=== PATIENT | male | born 1995 | race Caucasian/White ===

== ENCOUNTER 2022-05-18 09:36 | Emergency (ER) | payer BC ==
[2022-05-18 09:55] VITALS: O2SAT 97
[2022-05-18] MEDS ORDERED: Pepcid 20 MG VIAL IV ONE ×2 (10:10→10:15)
[2022-05-18] MEDS ORDERED: solu-MEDROL 125 MG, Sterile H2O 10 ml 2 ML IV ONE ×2 (10:10)
[2022-05-18] MEDS ORDERED: Sterile H2O 10 ml IJ ONE (10:15)
[2022-05-18] MEDS ORDERED: solu-MEDROL ONE (10:15)
[2022-05-18 10:24] LABS: Absolute Neutrophil Ct (ANC) 12.17 x10^3/uL (1.4-6.9); Basophil (Absolute #) 0.02 x10^3/uL (0-0.4); Eosinophil % 0.3 % (0.00-5.0); Eosinophil (Absolute #) 0.05 x10^3/uL (0-0.5); Hematocrit 47.8 % (42-50); Hemoglobin 16.2 g/dL (12.5-18.0); Lymphocyte (Absolute #) 1.59 x10^3/uL (1.0-4.6); Lymphocytes % 11.1 % (24.0-44.0); Mean Cell Volume 85.7 fL (78-100); Mean Corpuscular Hgb Concent. 33.9 g/dL (32-36); Mean Platelet Volume 9.7 fL (7.5-11.0); Monocyte (Absolute #) 0.51 x10^3/uL (0.0-1.3); Monocytes % 3.5 % (0.0-12.0); Neutrophil % 84.7 % (36.0-66.0); Platelet Count 293 x10^3/uL (150-450); Red Blood Count 5.58 x10^6/uL (4.1-5.6); Red Cell Distribution Width 11.7 % (11.5-14.0); White Blood Count 14.4 x10^3/uL (4.0-10.5)
--- NOTE | 2022-05-18 10:39 | ERPHSYRPT ---
- History of Present Illness Source: patient, other () Patient Subjective Stated Complaint: Pt c/o of bites/rash scattered over his body with swelling to hands, feet, neck Triage Nursing Assessment: Pt brought to the ER by his , hypertensive, denies pain except for occasional chest pain, back has multiple red lumps that look like chigger bites and a large swollen area the size of a hand on the bottom part of his neck, pt has bites and rash (not raised) on legs and arms and feet with swelling, itches, pt had been laying in the grass on a blanket on working on his car and he thought that is where he may have gotten into something, no difficulty breathing or seeing Physician History: 27 yo wm w diffuse, pruritic blanching rash x 1 day. Pt denies new or any meds, along with new exposures. He was lying in the grass on a blanket in the last couple of days. Pt denies fever/cough/dyspnea/angioedema/ST/cough/coryza. He has been having some intermittent chest pain which is sharp. Pt took 50mg po Benadryl at 1:00AM wo help. Timing/Duration: yesterday Quality: itchy Severity: moderate Location: generalized Possible Causes: no cause identified Allergies/Adverse Reactions: No Known Drug Allergies Allergy (Verified 05/18/22 09:55) Hx Influenza Vaccination/Date Given: Yes Hx Pneumococcal Vaccination/Date Given: No Immunizations Up to Date: Yes Travel Risk - International Travel Have you traveled outside of the country in past 3 weeks: No - Coronavirus Screening Are you exhibiting any of the following symptoms?: No Close contact with a COVID-19 positive Pt in past 14-21 Days: No - Vaccine Status Have you recieved a Covid-19 vaccination: No - Review of Systems Constitutional: No Symptoms Eyes: No Symptoms Ears, Nose, & Throat: No Symptoms Respiratory: No Symptoms Cardiac: No Symptoms Abdominal/Gastrointestinal: No Symptoms Genitourinary Symptoms: No Symptoms Musculoskeletal: No Symptoms Skin: No Symptoms, Rash Neurological: No Symptoms Psychological: No Symptoms Endocrine: No Symptoms Hematologic/Lymphatic: No Symptoms Immunological/Allergic: No Symptoms - Past Medical History Pertinent Past Medical History: No - Past Surgical History Past Surgical History: No - Social History Smoking Status: Never smoker Exposure to second hand smoke: No Drug Use: none Patient Lives Alone: No Significant Family History: no pertinent family hx - Nursing Vital Signs Nursing Vital Signs: Initial Vital Signs Temperature 96.6 F 05/18/22 09:42 Pulse Rate 70 05/18/22 09:42 Blood Pressure 147/88 05/18/22 09:42 O2 Sat by Pulse Oximetry 97 05/18/22 09:42 Pain Scale Pain Intensity 0 Hypertensive - Physical Exam General Appearance: no apparent distress Eye Exam: PERRL/EOMI, eyes nml inspection Ears, Nose, Throat Exam: normal ENT inspection, TMs normal, pharynx normal, moist mucous membranes Neck Exam: normal inspection, non-tender, supple, full range of motion, No meningismus, No mass, No Brudzinski, No Kernig's Respiratory Exam: normal breath sounds, lungs clear, No respiratory distress, No airway intact Cardiovascular Exam: regular rate/rhythm, normal heart sounds, normal peripheral pulses, capillary refill <2 sec, No murmur Gastrointestinal/Abdomen Exam: soft, normal bowel sounds, No tenderness Back Exam: normal range of motion, rash, No CVA tenderness, No vertebral tenderness Extremity Exam: normal range of motion, pelvis stable Neurologic Exam: alert, oriented x 3, cooperative, 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, normal mood/affect, nml cerebellar function, nml station & gait, sensation nml, No motor deficits, No sensory deficit Skin Exam: other (Generalized urticaria) Lymphatic Exam: No adenopathy SpO2 Interpretation: normal SpO2: 97 O2 Delivery: Room Air - Course Nursing assessment & vital signs reviewed: Yes EKG Interpreted by Me: RATE (NSR/Rate 65/Normal QT-QTc/No acute ST segment changes) Ordered Tests: Active Orders 24 hr Category Date Time Status CBC W DIFF Stat Lab 05/18/22 10:10 Completed CMP Stat Lab 05/18/22 10:10 Completed TROPONIN Q4H Lab 05/18/22 10:10 Completed Medication Summary Discontinued Medications Generic Name Dose Route Start Last Admin Trade Name Freq PRN Reason Stop Dose Admin Methylprednisolone Sodium 0 mg 05/18/22 10:10 05/18/22 10:10 Succinate 125 mg/ Sterile IV 05/18/22 10:11 125 mg Water 2 ml STAT ONE Administration Famotidine 40 mg 05/18/22 10:10 05/18/22 10:10 Famotidine 20 Mg/1 Vial IV 05/18/22 10:11 40 mg STAT ONE Administration Famotidine Confirm 05/18/22 10:15 Famotidine 20 Mg/1 Vial Administered 05/18/22 10:16 Dose 40 mg IV .STK-MED ONE Methylprednisolone Sodium Succinate Confirm 05/18/22 10:15 Methylprednis Sod Succ 125 Mg/2 Ml Vial Administered 05/18/22 10:16 Dose 125 mg .ROUTE .STK-MED ONE Sterile Water Confirm 05/18/22 10:15 Water For Injection,Sterile 10 Ml Vial Administered 05/18/22 10:16 Dose 10 ml IJ .STK-MED ONE Lab/Rad Data: Laboratory Result Diagrams 05/18/22 10:10 05/18/22 10:10 Laboratory Results 05/18/22 05/18/22 05/18/22 Range/Units 10:30 10:30 10:10 WBC (4.0-10.5) x10^3/uL RBC (4.1-5.6) x10^6/uL Hgb (12.5-18.0) g/dL Hct (42-50) % MCV (78-100) fL MCH (26-32) pg MCHC (32-36) g/dL RDW (11.5-14.0) % Plt Count (150-450) x10^3/uL MPV (7.5-11.0) fL Gran % (36.0-66.0) % Immature Gran % (Auto) (0.00-0.4) % Nucleat RBC Rel Count (0.00-0.1) % Eos # (Auto) (0-0.5) x10^3/uL Immature Gran # (Auto) (0.00-0.03) x10^3u/L Absolute Lymphs (auto) (1.0-4.6) x10^3/uL Absolute Monos (auto) (0.0-1.3) x10^3/uL Absolute Nucleated RBC (0.00-0.01) x10^3u/L Lymphocytes % (24.0-44.0) % Monocytes % (0.0-12.0) % Eosinophils % (0.00-5.0) % Basophils % (0.0-0.4) % Absolute Granulocytes (1.4-6.9) x10^3/uL Basophils # (0-0.4) x10^3/uL Sodium (137-145) mmol/L Potassium (3.5-5.1) mmol/L Chloride (98-107) mmol/L Carbon Dioxide (22-30) mmol/L Anion Gap (5-15) MEQ/L BUN (9-20) mg/dL Creatinine (0.66-1.25) mg/dL Estimated GFR ML/MIN Glucose (74-106) mg/dL Calcium (8.4-10.2) mg/dL Total Bilirubin (0.2-1.3) mg/dL AST (17-59) U/L ALT (0-50) U/L Alkaline Phosphatase (38-126) U/L Troponin I < 0.012 (0.000-0.034) ng/mL Serum Total Protein (6.3-8.2) g/dL Albumin (3.5-5.0) g/dL Influenza Type A Ag NEGATIVE (NEGATIVE) Influenza Type B Ag NEGATIVE (NEGATIVE) RSV (PCR) NEGATIVE (Negative) SARS-CoV-2 (PCR) NEGATIVE (NEGATIVE) Group A Strep Antibody NOT DETECTED (NEGATIVE) 05/18/22 05/18/22 Range/Units 10:10 10:10 WBC 14.4 H (4.0-10.5) x10^3/uL RBC 5.58 (4.1-5.6) x10^6/uL Hgb 16.2 (12.5-18.0) g/dL Hct 47.8 (42-50) % MCV 85.7 (78-100) fL MCH 29.0 (26-32) pg MCHC 33.9 (32-36) g/dL RDW 11.7 (11.5-14.0) % Plt Count 293 (150-450) x10^3/uL MPV 9.7 (7.5-11.0) fL Gran % 84.7 H (36.0-66.0) % Immature Gran % (Auto) 0.3 (0.00-0.4) % Nucleat RBC Rel Count 0.0 (0.00-0.1) % Eos # (Auto) 0.05 (0-0.5) x10^3/uL Immature Gran # (Auto) 0.04 H (0.00-0.03) x10^3u/L Absolute Lymphs (auto) 1.59 (1.0-4.6) x10^3/uL Absolute Monos (auto) 0.51 (0.0-1.3) x10^3/uL Absolute Nucleated RBC 0.00 (0.00-0.01) x10^3u/L Lymphocytes % 11.1 L (24.0-44.0) % Monocytes % 3.5 (0.0-12.0) % Eosinophils % 0.3 (0.00-5.0) % Basophils % 0.1 (0.0-0.4) % Absolute Granulocytes 12.17 H (1.4-6.9) x10^3/uL Basophils # 0.02 (0-0.4) x10^3/uL Sodium 138 (137-145) mmol/L Potassium 4.1 (3.5-5.1) mmol/L Chloride 105 (98-107) mmol/L Carbon Dioxide 23 (22-30) mmol/L Anion Gap 14.5 (5-15) MEQ/L BUN 16 (9-20) mg/dL Creatinine 0.89 (0.66-1.25) mg/dL Estimated GFR > 60.0 ML/MIN Glucose 109 H (74-106) mg/dL Calcium 8.9 (8.4-10.2) mg/dL Total Bilirubin 2.30 H (0.2-1.3) mg/dL AST 30 (17-59) U/L ALT 39 (0-50) U/L Alkaline Phosphatase 57 (38-126) U/L Troponin I (0.000-0.034) ng/mL Serum Total Protein 7.6 (6.3-8.2) g/dL Albumin 4.4 (3.5-5.0) g/dL Influenza Type A Ag (NEGATIVE) Influenza Type B Ag (NEGATIVE) RSV (PCR) (Negative) SARS-CoV-2 (PCR) (NEGATIVE) Group A Strep Antibody (NEGATIVE) - Progress Progress Note: 05/18/22 11:30 125mg IV Solumedrol/40mg IV Pepcid 05/18/22 11:47 Pt w minimal improvement No evidence of anaphylaxis in ER Counseled pt/family regarding: lab results, diagnosis, need for follow-up - Departure Departure Disposition: Home Clinical Impression: Urticaria Condition: Stable Critical Care Time: No Referrals: DOCTOR,NO FAMILY [Primary Care Provider] - Follow up/PCP as directed Instructions: Maricruz BRADFORD) Additional Instructions: Prednisone twice a day for 3 days Pepcid 40mg a day Benadryl 25mg every 6 hours as needed EpiPen for severe allergic reaction Follow up with your family MD or hide stretcher hand Return to ER for trouble breathing/swallowing/Temperature greater than 100.5 Prescriptions: Prednisone 10 mg [Deltasone 10 mg] 10 mg PO BID 3 Days #6 tablet
[2022-05-18 10:42] LABS: ALBUMIN 4.4 g/dL (3.5-5.0); ALKALINE PHOSPHATASE 57 U/L (38-126); ANION GAP 14.5 MEQ/L (5-15); BLOOD UREA NITROGEN 16 mg/dL (9-20); CHLORIDE 105 mmol/L (98-107); Calcium 8.9 mg/dL (8.4-10.2); Carbon Dioxide 23 mmol/L (22-30); Creatinine 1 0.89 mg/dL (0.66-1.25); EST GLOMERULAR FILTRATION RATE > 60.0 ML/MIN; Glucose 109 mg/dL (74-106); Potassium 4.1 mmol/L (3.5-5.1); SGOT/AST 30 U/L (17-59); SGPT/ALT 39 U/L (0-50); SODIUM 138 mmol/L (137-145); Total Protein 7.6 g/dL (6.3-8.2)
[2022-05-18 11:30] LABS: INFLUENZA A NEGATIVE (NEGATIVE); INFLUENZA B NEGATIVE (NEGATIVE); RESPIRATORY SYNCTIAL VIRUS NEGATIVE (Negative); SARS-CoV-2 Xpert Express NEGATIVE (NEGATIVE)
[2022-05-18 11:57] VITALS: BP 137/74; PULSE 62
== END 2022-05-18 11:57 | disposition home or self-care (01) ==
LOC: ED 09:36
DX: L50.9 Urticaria, unspecified (principal); R07.9 Chest pain, unspecified; Z79.52 Long term (current) use of systemic steroids; Z28.310 Unvaccinated for COVID-19
CPT/HCPCS: 0241U; 36000; 36415; 80053; 84484; 85025; 87651; 96374; 96375; 99283; J2930

== ENCOUNTER 2024-11-28 21:09 | Emergency (ER) | payer BC ==
--- NOTE | 2024-11-28 21:21 | ERPHSYRPT ---
- History of Present Illness Time Seen by Provider: 11/28/24 21:21 Source: patient Exam Limitations: no limitations Physician History: This is a right handed 29-year-old white male patient who presents with a 3 cm left index finger dorsal aspect skin laceration that occurred just prior to arrival. Patient accidentally cut himself using a razor blade when cutting plastic tubing. Patient's tetanus status is unknown and he is refusing a tetanus injection. He also refuses narcotic pain medicine. Timing/Duration: today Quality: painful Severity: mild Location: hands (Left hand index finger laceration mid portion dorsal aspect) Possible Causes: no cause identified Associated Symptoms: denies symptoms Allergies/Adverse Reactions: No Known Drug Allergies Allergy (Verified 11/28/24 21:22) Home Medications: No Reportable Medications [No Reported Medications] 11/28/24 [History] Hx Influenza Vaccination/Date Given: Yes Hx Pneumococcal Vaccination/Date Given: No Travel Risk - International Travel Have you traveled outside of the country in past 3 weeks: No - Emerging Infectious Disease Are you exhibiting symptoms associated with any current EIDs: No - Review of Systems Constitutional: No Symptoms Eyes: No Symptoms Ears, Nose, & Throat: No Symptoms Respiratory: No Symptoms Cardiac: No Symptoms Abdominal/Gastrointestinal: No Symptoms Genitourinary Symptoms: No Symptoms Musculoskeletal: Injury (Left index finger laceration dorsal aspect midportion) Skin: Other (See above) Neurological: No Symptoms Psychological: No Symptoms Endocrine: No Symptoms Hematologic/Lymphatic: No Symptoms Immunological/Allergic: No Symptoms All Other Systems: Reviewed and Negative - Past Medical History Pertinent Past Medical History: No - Past Surgical History Past Surgical History: No Significant Family History: no pertinent family hx - Social History Smoking Status: Never smoker Exposure to second hand smoke: No Drug Use: none Patient Lives Alone: No - Nursing Vital Signs Nursing Vital Signs: Initial Vital Signs Temperature 97.9 F 11/28/24 21:12 Pulse Rate 67 11/28/24 21:12 Respiratory Rate 19 11/28/24 21:12 Blood Pressure 140/68 11/28/24 21:12 O2 Sat by Pulse Oximetry 98 11/28/24 21:12 Pain Scale Pain Intensity 4 - Physical Exam General Appearance: no apparent distress, alert, anxiety Eye Exam: PERRL/EOMI, eyes nml inspection Ears, Nose, Throat Exam: normal ENT inspection, moist mucous membranes Neck Exam: normal inspection, non-tender, supple, full range of motion Respiratory Exam: airway intact, No chest tenderness, No respiratory distress Gastrointestinal/Abdomen Exam: No tenderness Rectal Exam: not done Back Exam: normal inspection, normal range of motion, No CVA tenderness, No vertebral tenderness Extremity Exam: normal inspection, normal range of motion, pelvis stable Neurologic Exam: alert, oriented x 3, cooperative, 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 Neurovascularly intact. Tendons are intact. No active bleeding) Lymphatic Exam: No adenopathy SpO2 Interpretation: normal O2 Delivery: Room Air Procedures - Laceration/Wound Repair Left Dorsal Finger Time of Procedure: 22:00 Wound Location: Left, hand (Dorsal aspect midportion index finger) Wound Length (cm): 3 Wound's Depth, Shape: superficial, linear Wound Explored: clean (Wound explored to the base. No foreign body noted. Exploration performed in bloodless field) Irrigated: Yes Hibiclens Prep: Yes Anesthesia: 1% Lidocaine Volume Anesthetic (ccs): 4 Wound Repaired With: sutures Suture Size/Type: 3-0, nylon Number of Sutures: 3 - Course Nursing assessment & vital signs reviewed: Yes Ordered Tests: Medication Summary Discontinued Medications Generic Name Dose Route Start Last Admin Trade Name Freq PRN Reason Stop Dose Admin Bacitracin Zinc 0.9 each 11/28/24 22:11 Bacitracin Packet 1 Each Pckt TP 11/28/24 22:12 STAT ONE Lidocaine HCl Confirm 11/28/24 21:52 Lidocaine Hcl 1% 20 Ml Mdv 20 Ml Ml Administered 11/28/24 21:53 Dose 5 ml .ROUTE .STK-MED ONE - Progress Progress: improved Progress Note: 11/28/24 22:18 My medical decision making in the assignment of low complexity of this patient's medical issue today is based on review of the patient's past medical history, review of patient's medication list, review of patient drug allergy list, history present illness and physical findings on examination. No radiographic or laboratory studies are necessary in this patient. Patient is refusing tetanus immunization. He is refusing narcotic pain medicine. Differential diagnosis includes but is not limited to skin abrasion finger, finger laceration Counseled pt/family regarding: diagnosis, need for follow-up, rad results Medical Desision Making - Diagnostic Testing Diagnostic test were ordered, analyzed, and reviewed by me: No - Risk of complications Minimal Risk: Minimal risk of morbidity - Departure Departure Disposition: Home Clinical Impression: Laceration of left index finger Condition: Stable Critical Care Time: No Referrals: DOCTOR,NO FAMILY [Primary Care Provider] - Follow up/PCP as directed Additional Instructions: Keep the current bandage in place until the morning of 11/30/2024. At that time you may remove the dressing and rinse the site off with soapy water. Blot dry or use a chair installer. Once the area is dry, place a thin layer of antibiotic ointment and then cover with a nonstick bandage. Do this each day. Suture removal in 8 to 10 days. Use Tylenol and ibuprofen for pain control.
[2024-11-28 21:22] VITALS: TEMP 97.9
[2024-11-28] MEDS ORDERED: XYLOCAINE 1% HCL 20 ML MDV ONE (21:52)
[2024-11-28 22:10] VITALS: BP 144/83; PULSE 69; RESP 18; O2SAT 97
[2024-11-28] MEDS ORDERED: BACIGUENT PACKET ONE (22:12)
[2024-11-28] MEDS: BACIGUENT PACKET TP ONE (22:14)
== END 2024-11-28 22:32 | disposition home or self-care (01) ==
LOC: ED 21:09
DX: S61.211A Laceration without foreign body of left index finger without damage to nail, initial encounter (principal); W45.8XXA Other foreign body or object entering through skin, initial encounter
CPT/HCPCS: 12002; 99282; 99283; A9270-GY